=== PATIENT | female | born 1975 | race Caucasian/White ===

== ENCOUNTER 2019-10-29 16:11 | Outpatient (CLI) | payer OTHER, SELFPAY ==
--- NOTE | ~2019-10-29 | MM_ITS ---
EXAMINATION: MM screening [facility] w tashia HISTORY: Screening TECHNIQUE: Craniocaudal and mediolateral oblique 3-D tomosynthesis images were obtained and synthetic 2-D images were generated. CAD analysis was submitted and interpreted. COMPARISON: Comparison to multiple prior studies sequentially, with oldest reviewed study dated 11/12. BREAST PARENCHYMAL COMPOSITION: There are scattered areas of fibroglandular density. FINDINGS: There is no evidence of suspicious mass, calcification, or architectural distortion to sugg est malignancy in either breast. There has been no suspicious interval change. IMPRESSION: 1. No mammographic evidence of malignancy. 2. Recommend routine screening mammography in one year. BI-RADS Category 1: Negative Reviewed, dictated and finalized at location A.
== END 2019-10-29 16:12 | disposition home or self-care (01) ==
PROVIDERS: PCP Family Medicine; Visit Provider Family Medicine
DX: Z12.31 Encounter for screening mammogram for malignant neoplasm of breast (principal)
CPT/HCPCS: 77063; 77067

== ENCOUNTER → 2020-04-17 07:29 | Outpatient (CLI) | payer OTHER, SELFPAY ==
--- NOTE | ~2020-04-17 | US_ITS ---
EXAMINATION: US transvaginal DATE: 04/17/2020 07:55 INDICATION: Missing IUD strings TECHNIQUE: Multiple endovaginal sonographic images of the pelvis were obtained. COMPARISON: 05/28/2015 FINDINGS: The uterus measures 7.8 x 3.3 x 3.6 cm. The IUD appears to be within the uterus in expected position. The endometrial complex measures 7 mm. The right ovary measures 2.4 x 2.3 x 2.2 cm. The le ft ovary measures 1.9 x 2.1 x 2 cm. There is normal vascular flow in the ovaries. There is no free fl uid in the pelvis. IMPRESSION: 1. IUD appears to be in expected position. Reviewed, dictated and finalized at location A. CTOR OF FEDERAL SALES
== END ==
PROVIDERS: Visit Provider Nurse Practitioner
DX: Z30.431 Encounter for routine checking of intrauterine contraceptive device (principal)
CPT/HCPCS: 76830

== ENCOUNTER → 2020-05-27 10:11 | Outpatient (CLI) | payer OTHER, SELFPAY ==
[2020-05-28 13:21] LABS: SARS-CoV-2 RNA PCR Negative
== END ==
PROVIDERS: PCP Family Medicine; Visit Provider Family Medicine
DX: Z20.822 Contact with and (suspected) exposure to COVID-19 (principal); R50.9 Fever, unspecified
CPT/HCPCS: C9803; U0003; U0005

== ENCOUNTER → 2021-03-08 15:34 | Outpatient (CLI) | payer OTHER, SELFPAY ==
--- NOTE | ~2021-03-08 | MM_ITS ---
EXAMINATION: MM screening [facility] BI w tashia HISTORY: Screening mammogram TECHNIQUE: Craniocaudal and mediolateral oblique 3-D tomosynthesis images were obtained and synthetic 2-D images were generated. CAD analysis was submitted and interpreted. COMPARISON: 10/29/2019 bilateral screening mammogram 07/02/2018 diagnostic left mammogram and limited left breast ultrasound 04/05/2018 and lateral screening mammogram BREAST PARENCHYMAL COMPOSITION: There are scattered areas of fibroglandular density. FINDINGS: There is no evidence of suspicious mass, calcification, or architectural distortion to sugg est malignancy in either breast. There has been no suspicious interval change. IMPRESSION: 1. No mammographic evidence of malignancy. 2. Recommend routine screening mammography in one year. BI-RADS Category 1: Negative Reviewed, dictated and finalized at location A. OTIST/PROSTHETIST
--- NOTE | ~2021-03-08 | US_ITS ---
EXAMINATION: US transvaginal EXAM DATE: 03/08/2021 15:59 INDICATION: Displacement of intrauterine contraceptive device, initial. TECHNIQUE: Pelvic transvaginal sonogram was performed. There are multiple grayscale and Doppler imag es available for interpretation. Comparison is made to prior examination from 04/17/2020. FINDINGS: Uterus measures 7.5 x 3.6 x 3.7 cm, with IUD centrally located inside the endometrial cavi ty. Endometrial stripe measures 5 mm, within normal limits. There is no free pelvic fluid. Right adnexa: The ovary measures 2.0 x 1.8 x 1.6 cm and is morphologically normal. Ovarian vascular f low confirmed. Left adnexa: The ovary measures 1.6 x 1.7 x 1.7 cm and is morphologically normal. Ovarian vascular fl ow confirmed. IMPRESSION: 1. IUD in expected position. Reviewed, dictated and finalized at location B. KJACK SUPERVISOR
== END ==
PROVIDERS: Visit Provider Nurse Practitioner
DX: Z12.31 Encounter for screening mammogram for malignant neoplasm of breast (principal); T83.32XA Displacement of intrauterine contraceptive device, initial encounter
CPT/HCPCS: 76830; 77063; 77067

== ENCOUNTER 2022-02-17 11:47 | Emergency (ER) | payer OTHER, SELFPAY ==
[2022-02-17 13:21] VITALS: BP 123/80; PULSE 64; RESP 18; TEMP 36.4; O2SAT 100
--- NOTE | 2022-02-17 14:20 | ED.SKABFB ---
HPI - Skin/Abscess/Foreign Bdy General Chief complaint: Skin/Abscess/Foreign Body Stated complaint: foreign object rt ear Source: patient Mode of arrival: ambulatory History of Present Illness HPI narrative: This is a 46-year-old female that came to our urgent care with complaints of a foreign body to her left ear. According to patient she used a Q-tip to clean her ear in the tip of the Q-tip came off in her ear this morning. The patient denies SOB, CP, palpitation, extremity numbness, lightheadedness, dizziness, constipation, decreasing hearing, Patient able to tolerate all meals , slept well and ambulate at baseline. Patient denies SOB, CP, palpitation, extremity numbness, lightheadness, dizziness, constipation, diarrhea, or chills or fever. Patient agree that they are ready for discharge and discharge plan, diarrhea, chills, or fever. Related Data Home Medications Medication Instructions Recorded Confirmed levonorgestrel 20 mcg/24 hours (8 See Rx Instructions .Route .COMPLEX 02/17/22 02/17/22 yrs) 52 mg intrauterine device (Mirena) lisinopril 5 mg tablet 5 mg PO DAILY 02/17/22 02/17/22 omeprazole 40 mg capsule,delayed 40 mg PO DAILY 02/17/22 02/17/22 release Allergies Allergy/AdvReac Type Severity Reaction Status Date / Time No Known Allergies Allergy Verified 02/17/22 14:31 Review of Systems Review of Systems: A 14 organ system Review of Systems was performed and pertinent positives included in the HPI, otherwise remaining ROS is negative. Exam Narrative: GENERAL: This is a well-nourished, well-developed patient, in no apparent distress. HEAD: normocephalic, atraumatic. EYES: PERRL. Sclera clear/white. Vision is grossly intact. EARS: External ears normal, auditory canals with erythema TMs erythema without perforation. Hearing grossly intact. NOSE: External nose normal with no obvious nasal discharge, nares without redness, no rhinorrhea. THROAT: Mucous membranes moist, posterior pharynx clear. NECK: Neck supple, non-tender without lymphadenopathy, masses or thyromegaly. CARDIOVASCULAR: Regular rate and rhythm without murmurs, gallops, or rubs. RESPIRATORY: Clear to auscultation. Breath sounds equal bilaterally. No wheezes, rales, or rhonchi. GASTROINTESTINAL: Abdomen soft, non-tender, nondistended. Bowel sounds are active. No hepato-splenomegaly, or palpable masses. No guarding. SKIN: warm, intact with no suspicious lesions or rash, good texture and turgor. NEURO: awake, alert, and oriented to person, place and time. There were no obvious focal neurologic abnormalities. EXTREMITIES: Normal range of motion. No edema. No calf tenderness. Course Course Emergency Course: Patient will discharge home with Augmentin due to right ear otitis media Level of Care: Express Care Visit Vital Signs Vital signs: Vital Signs Temperature 97.5 F L 02/17/22 13:21 Pulse Rate 64 02/17/22 13:21 Respiratory Rate 18 02/17/22 13:21 Blood Pressure 123/80 02/17/22 13:21 Pulse Oximetry 100 02/17/22 13:21 Oxygen Delivery Room Air 02/17/22 13:21 Temperature 97.5 F L 02/17/22 13:21 Pulse Rate 64 02/17/22 13:21 Respiratory Rate 18 02/17/22 13:21 Blood Pressure 123/80 02/17/22 13:21 Pulse Oximetry 100 02/17/22 13:21 Oxygen Delivery Room Air 02/17/22 13:21 MDM - Skin/Abscess/Foreign Bdy Differential Diagnosis Differential diagnosis: Likely other (Otitis media versus foreign body) Discharge Plan Discharge Clinical Impression: Foreign body in right ear, Otitis media Patient Disposition: Home, Self-Care Condition: Stable Instructions: Antibiotic Form, Ear Foreign Body (ED), Ear Infection (GEN) Additional Instructions: Follow up with your provider in 1-2 weeks Take all medications as prescribed How are ear infections treated? - Doctors can treat ear infections with antibiotics. These medicines kill the bacteria that cause some ear infections. But doctors do not alway
== END 2022-02-17 14:40 | disposition home or self-care (01) ==
PROVIDERS: Emergency Provider Nurse Practitioner; PCP Family Medicine
DX: T16.1XXA Foreign body in right ear, initial encounter (principal); X58.XXXA Exposure to other specified factors, initial encounter; H66.91 Otitis media, unspecified, right ear
CPT/HCPCS: 99213; G0463

== ENCOUNTER → 2022-07-12 14:08 | Outpatient (CLI) | payer OTHER, SELFPAY ==
--- NOTE | ~2022-07-12 | MM_ITS ---
EXAMINATION: MM screening [facility] w tashia HISTORY: Screening mammogram, family history of breast cancer in her mother. TECHNIQUE: Craniocaudal and mediolateral oblique 3-D tomosynthesis images were obtained and synthetic 2-D images were generated. CAD analysis was submitted and interpreted. COMPARISON: 03/08/2021, 10/29/2019, 07/02/2018, 04/05/2018, 02/14/2017 BREAST PARENCHYMAL COMPOSITION: There are scattered areas of fibroglandular density. FINDINGS: No suspicious mass, calcification, or architectural distortion are identified in either wes ast to suggest malignancy. There has been no suspicious interval change. IMPRESSION: 1. No mammographic evidence of malignancy. 2. Recommend routine screening mammography in one year. BI-RADS Category 1: Negative Reviewed, dictated and finalized at location A.
== END ==
PROVIDERS: PCP Family Medicine; Visit Provider Obstetrics & Gynecology Gynecology
DX: Z12.31 Encounter for screening mammogram for malignant neoplasm of breast (principal)
CPT/HCPCS: 77063; 77067

== ENCOUNTER 2024-03-20 11:26 | Outpatient (CLI) | payer OTHER, SELFPAY ==
--- NOTE | ~2024-03-20 | MM_ITS ---
EXAMINATION: MM screening [facility] w tashia HISTORY: Screening TECHNIQUE: Craniocaudal and mediolateral oblique 3-D tomosynthesis images were obtained and synthetic 2-D images were generated. CAD analysis was submitted and interpreted. COMPARISON: 07/12/2022 and dating back to 10/29/2019 BREAST PARENCHYMAL COMPOSITION: The breasts are heterogeneously dense, which may obscure small masses . FINDINGS: Stable parenchymal pattern without suspicious microcalcifications, architectural distortion, discrete masses or significant asymmetry. IMPRESSION: 1. No mammographic evidence of malignancy. 2. Recommend routine screening mammography in one year. BI-RADS Category 1: Negative Reviewed, dictated and finalized at location A. IRER WELDING EQUIPMENT
== END 2024-03-20 11:27 | disposition home or self-care (01) ==
PROVIDERS: PCP Family Medicine; Visit Provider Obstetrics & Gynecology Gynecology
DX: Z12.31 Encounter for screening mammogram for malignant neoplasm of breast (principal)
CPT/HCPCS: 77063; 77067

== ENCOUNTER 2025-01-08 17:31 | Emergency (ER) | payer OTHER, SELFPAY ==
--- OUTSIDE RECORDS SUMMARY | 2013-08-20 19:00 | XMS_ITS | Continuity of Care Document ---
Author Organization [facility] Address [address] [place] [address] Phone Care Team Providers Care Lock And Dam Equipment Repairer Name Role Phone Unavailable Unavailable Unavailable Advance Directives Directive Yes / No Effective Date File Name No Information Encounters Encounter Description Practice Location Reason(s) For Visit Diagnoses Date Provider Providers Copied on Encounter [facility], [address] [facility], [place], [place], [id number], [place] tel:[phone] [facility] No Information No Information Referring Provider: CIARA South, [address], [place], [address]. tel:[phone] Family History Family Member Type Diagnosis Age At Onset No Information Payers Payer name Insurance type Covered libertarian ID Authormilton larsenumer(s) [facility] PPO [id number] Social History Type Description Quantity Date Captured Comments Sex Female Smoking Status No Information Chief Complaint And Reason For Visit No Information History Of Present Illness Encounter Date Complaint History Of Prese nt Illness No Information Instructions Date Instruction Additional Infor mation No Information Assessments Type Assessment Date No Information
--- OUTSIDE RECORDS SUMMARY | 2013-08-20 19:00 | XMS_ITS | Continuity of Care Document ---
Author Organization [facility] Address [address] [place] [address] Phone Care Team Providers Care Oxygen Equipment Preparer Name Role Phone Unavailable Unavailable Unavailable Advance Directives Directive Yes / No Effective Date File Name No Information Encounters Encounter Description Practice Location Reason(s) For Visit Diagnoses Date Provider Providers Copied on Encounter [facility], [address] [facility], [place], [place], [id number], [place] tel:[phone] [facility] No Information No Information Referring Provider: CIARA South, [address], [place], [address]. tel:[phone] Family History Family Member Type Diagnosis Age At Onset No Information Payers Payer name Insurance type Covered alliance party ID Authormilton larsenumer(s) [facility] PPO [id number] Social History Type Description Quantity Date Captured Comments Sex Female Smoking Status No Information Chief Complaint And Reason For Visit No Information History Of Present Illness Encounter Date Complaint History Of Prese nt Illness No Information Instructions Date Instruction Additional Infor mation No Information Assessments Type Assessment Date No Information
[2025-01-08 17:43] VITALS: BP 139/106; PULSE 95; RESP 18; TEMP 36.3; O2SAT 100
--- NOTE | 2025-01-08 17:44 | ED_ITS ---
HPI - URI/Sore Throat General Chief Complaint: Upper Respiratory Infection Stated Complaint: Strep/ears Time Seen by Provider: 01/08/25 17:44 Source: patient Mode of arrival: ambulatory Limitations: no limitations History of Present Illness HPI Narrative: 49-year-old female presents with complaint of sore throat, nasal congestion, low-grade fever, body aches, fatigue and headache for the past 2 days. Today took 1 leftover amoxicillin tablet. Patient states I feel like a strep throat, sinus infection or ear infection. Denies nausea vomiting. No chest pain or shortness of breath. All systems reviewed and negative except as noted above. Related Data Home Medications ?Medication ?Instructions ?Recorded ?Confirmed ?Last Taken ?Type levonorgestrel (Mirena) See Rx Instructions .Route . COMPLEX 02/17/22 02/17/22 Unknown History lisinopril 5 mg tablet 5 mg PO DAILY 02/17/2202/17 Unknown History omeprazole 40 mg capsule,delayed 40 mg PO DAILY 02/17/22 Unknown History release Allergies Allergy/AdvReac Type Severity Reaction Status Date / Time cashew nut AdvReac Mild Abdominal Verified 01/08/25 17:44 Pain PMFSH Comments Reviewed Exam Narrative: GENERAL: This is a well-nourished, well-developed patient, in no apparent distress. HEAD: normocephalic, atraumatic. EYES: PERRL. Sclera clear/white. Vision is grossly intact. EARS: External ears normal, auditory canals clear and without drainage, TMs normal without perforation. Hearing grossly intact. NOSE: External nose normal with Nasal congestion, clear nasal drainage THROAT: Mucous membranes moist, erythema, tonsils 2+ bilaterally without exudates. NECK: Neck supple, non-tender without lymphadenopathy, masses or thyromegaly. CARDIOVASCULAR: Regular rate and rhythm without murmurs, gallops, or rubs. RESPIRATORY: Clear to auscultation. Breath sounds equal bilaterally. No wheezes, rales, or rhonchi. SKIN: warm, Dry, intact with no suspicious lesions or rash, good texture and turgor. NEURO: awake, alert, and oriented to person, place and time. There were no obvious focal neurologic abnormalities. EXTREMITIES: No joint tenderness, effusion, or edema noted. Course Course Level of Care: Express Care Visit Vital Signs Vital signs: reviewed MDM - URI/Sore Throat MDM Narrative Medical decision making narrative: negative COVID, influenza and strep test. Strep culture ordered. Patient would prefer to start antibiotic today, concerned she has strep throat. Differential Diagnosis Differential diagnosis: Likely upper respiratory infection, sinusitis, viral infection, influenza and pharyngitis Discharge Plan Discharge Clinical Impression: Acute tonsillitis Qualifiers: Pharyngitis/tonsillitis etiology: unspecified etiology Qualified Code(s): J03.90 - Acute tonsillitis, unspecified Patient Disposition: Home Condition: Stable Instructions: Antibiotic Form, Tonsillitis (ED) Additional Instructions: your COVID, influenza and strep test was negative today. Due toyour symptoms and exam findings I am prescribing an antibiotic today to treat strep throat. Take antibiotic as prescribed until gone. Change toothbrush after taking antibiotic for 24 hours. Take ibuprofen or Tylenol every 6-8 hours as needed for pain and fever. Drink plenty of water and rest. See your doctor if symptoms are not improving. Patient Language: Citizen Of [place] Prescriptions: New amoxicillin 500 mg capsule 500 mg PO Q12H 10 Days Qty: 20 0RF No Action Mirena 20 mcg/24 hours (8 yrs) 52 mg Intrauterine Device See Rx Instructions .ROUTE .COMPLEX Rx Instructions: 20 mcg intrauterinely omeprazole 40 mg capsule,delayed release(DR/EC) 40 mg PO DAILY lisinopril 5 mg tablet 5 mg PO DAILY Follow-up/Referrals: Jamil,MD Rajeev [Primary Care Provider, Unknown] Stand Alone Forms: Work/School Release IP Time of Disposition: 18:16
[2025-01-08 18:01] LABS: EDSTREPNEGPOS1 Negative (Negative)
--- OUTSIDE RECORDS SUMMARY | 2025-01-08 18:03 | XMS_ITS | Clinical Summary ---
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 Gender Identity Not on file Sexual Orientation Not on file Occupation Industry Job Start Date Job End Date Not on file Not on file Not on file Not on file Plan of Treatment Health Maintenance Due Date Last Done Comments DTAP/TDAP/TD VACCINES (1 - Tdap) 1996 HEPATITIS B VACCINES (1 of 3 - 19+ 3-dose series) 03/27 HPV/Cotest (21-29) 1998 CERVICAL CANCER SCREENING 2007 HPV/Cotest (30-65) 2007 PAP SMEAR 2007 BREAST CANCER SCREENING 2017 COLORECTAL SCREENING 2022 Colorectal Cancer Screening 2022 FIT-DNA Q 3 years 2022 FIT/FOBT Q 1 year 2022 Flex Sig/CT Colonography Q 5 years 2022 INFLUENZA VACCINE (#1) 2024 RSV VACCINE (60+ or ) (1 - 1-dose 75+ series) 2052 Care Teams Manganese Heater Relationship Specialty Start Date End Date Cele Burk MD [address] [address] PCP - General 03/12/15
--- OUTSIDE RECORDS SUMMARY | 2025-01-08 18:03 | XMS_ITS | Clinical Summary ---
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 Gender Identity Not on file Sexual Orientation Not on file Plan of Treatment Health Maintenance Due Date Last Done Comments Cervical Cancer Screening Pa p Smear (Age 30 to 64) Every 3 Years 1977 Colorectal Cancer Screening Colonoscopy (10 Years) 1977 Annual Physical 1980 Hepatitis C 1995 DTaP, Tdap and Td Vaccines ( 1 - Tdap) 1996 Hepatitis B Vaccines (1 of 3 - 19+ 3-dose series) 1996 Cervical Cancer Screening Pa p with HPV Testing (Age 30 to 64) Every 5 Years 2007 Cervical Cancer Screening with HPV 2007 Mammogram Screening 2017 COVID-19 Vaccine (2023-2 5 season) 2024 Influenza Adult (#1) 2024 Hepatitis A Vaccines Aged Out No long er eligible based on patient's age to complete this topic Meningococcal B Vaccine Aged Out No l onger eligible based on patient's age to complete this topic Meningococcal Vaccine Aged Out No josé miguel han eligible based on patient's age to complete this topic Pneumococcal Vaccine: Pediat rics (0 to 5 Years) and At-Risk Patients (6 to 49 Years) Aged Out No longer eligible b ased on patient's age to complete this topic RSV Immunizations Under 20 Months Aged Out No longer eligible based on patient's age to complete this topic Insurance [facility] Care Teams Maintenance Worker Municipal Relationship Specialty Start Date End Date Rajeev Negron MD PCP - General HOSPITALIST 02/20/22
[2025-01-08 18:20] LABS: EDCOVIDSCREEN Negative (Negative); EDINFLUASCREEN Negative (Negative); EDINFLUBSCREEN Negative (Negative)
== END 2025-01-08 18:21 | disposition home or self-care (01) ==
PROVIDERS: Emergency Provider Nurse Practitioner Family; PCP Family Medicine
DX: J03.90 Acute tonsillitis, unspecified (principal); Z20.822 Contact with and (suspected) exposure to COVID-19
CPT/HCPCS: 87081; 87426; 87804; 87880; 99213; G0463